=== PATIENT | female | born 1955 | race Caucasian/White ===

== ENCOUNTER 2016-09-20 06:32 | Day surgery (SDC) | payer OTHER ==
[2016-09-20] VITALS (8 sets, daily range): BP systolic 125–200; BP diastolic 63–126; PULSE 64–88; RESP 18–20; TEMP 97.4–98.3; O2SAT 94–98
[~2016-09-20] VITALS: Ht 162.6 cm; Wt 140.0 kg
[2016-09-20] MEDS ORDERED: LEVOFLOXACIN 500 MG PREMIX 100 ML - nephrostomy tube insertion or exchange IV SCH (07:15)
[2016-09-20] MEDS ORDERED: SODIUM CHLORIDE 0.9% 1000 ML IV SCH (07:15)
[2016-09-20] MEDS ORDERED: CALC1TAB87 PO (07:22)
[2016-09-20] MEDS ORDERED: MONT10TA4 PO (07:22)
[2016-09-20] MEDS ORDERED: METF850T PO (07:22)
[2016-09-20] MEDS ORDERED: GLYB5TAB3 PO (07:22)
[2016-09-20] MEDS ORDERED: FLUO40CA PO (07:22)
[2016-09-20] MEDS ORDERED: LISI-519 PO (07:22)
[2016-09-20 07:34] LABS: AUTOMATED NEUTROPHIL # 7.2 TH/MM3 (1.8-7.7); BASOPHIL # 0.1 TH/MM3 (0-0.2); BASOPHIL % 0.8 % (0.0-2.0); EOSINOPHIL # 0.3 TH/MM3 (0-0.4); EOSINOPHIL % 2.4 % (0.0-4.0); HEMATOCRIT 34.2 % (35.0-46.0); HEMO FLAGS DIFF FINAL; LYMPH % 24.5 % (9.0-44.0); LYMPHOCYTE # 2.6 TH/MM3 (1.0-4.8); MEAN CELL VOLUME 92.2 FL (80.0-100.0); MEAN CORPUSCULAR HEMOGLOBIN 32.5 PG (27.0-34.0); MEAN CORPUSCULAR HGB CONC 35.3 % (32.0-36.0); MONO % 5.4 % (0.0-8.0); NEUT % 66.9 % (16.0-70.0); PLATELET COUNT 308 TH/MM3 (150-450); RED BLOOD COUNT 3.71 MIL/MM3 (4.00-5.30); RED CELL DISTRIBUTION WIDTH 13.2 % (11.6-17.2); WHITE BLOOD COUNT 10.7 TH/MM3 (4.0-11.0)
[2016-09-20 07:36] LABS: APTT (PATIENT) 26.1 SEC (24.3-30.1); INTERNATIONAL NORMALIZED RATIO 0.9 RATIO; PROTHROMBIN TIME - PATIENT 10.1 SEC (9.8-11.6)
[2016-09-20] MEDS ORDERED: MIDAZOLAM HCL 5 MG/5 ML VIAL ONE (08:45)
[2016-09-20] MEDS ORDERED: fentaNYL CITRATE 250 MCG/5 ML AMP ONE (08:45)
[2016-09-20] MEDS ORDERED: MIDAZOLAM HCL 2 MG/2 ML VIAL ONE (09:44)
--- NOTE | 2016-09-20 10:14 | PD.RAD ---
Post Procedure Progress Note Pre Procedure Diagnosis: (1) Hydronephrosis of left kidney Post Procedure Diagnosis: (1) Hydronephrosis of left kidney Procedure Date: Sep 20, 2016 Supervising Radiologist: Emerson Guzman Anesthesia: Local, Conscious Sedation Plan of Activity Patient to Unit: ROPU Patient Condition: Good See PACS Report for procedural detail/treatment Drainage Procedure Procedure 1 Imaging Guidance: Fluoroscopy Side: Left Procedure Type: Nephrostomy Procedure: Placement Spanish: 8 Drainage: [place] drainage Fluid Description: Bloody Emerson Guzman MD Sep 20, 2016 10:14
[2016-09-20] MEDS ORDERED: GADODIAMIDE PF 287 MG/ML 20 ML VIAL (for RAD MRI) IV PUSH ONE (10:16)
--- NOTE | 2016-09-20 16:14 | RADRPT ---
EXAM DATE/TIME: 09/20/2016 09:01 [facility] COMPARISON: No previous studies available for comparison. INDICATIONS : Patient with history of left renal hydronephrosis and calculi in need of nephrostomy tube placement. MEDICAL HISTORY : 1.L2 lumbar fracture 2.DM 3.Chronic low back pain 4.Kidney stones SURGICAL HISTORY : 1.Lithotripsy 2.Tonsilectomy ENCOUNTER: Initial ACUITY: 1 week PAIN SCORE: 4/10 LOCATION: Back. FLUORO TIME: 12.1 minutes IMAGE SERIES: 2 SEDATION TIME: 60 minutes CONTRAST: 20 cc Omniscan (gadodiamide) MEDICATION(S): 1.) 7 mg midazolam (Versed) IV 2.) 350 mcg fentanyl (Sublimaze) IV DEVICE(S): 1.) 8 [place] nephrostomy catheter PROCEDURE : 1. Ultrasound-guided puncture of the kidney. 2. CO2 Antegrade percutaneous pyelogram. 3. Percutaneous nephrostomy placement. 4. Conscious sedation with continuous EKG and oximetry monitoring. The risks, benefits and alternatives to the procedure were explained and verbal and written consent w as obtained. The site was prepped in sterile fashion. Full sterile technique was used, including ca p, mask, sterile gloves and gown and a large sterile sheet. Hand hygiene and 2% chlorhexidine and/or betadine/alcohol prep was utilized per protocol for cutaneous antisepsis. The skin and subcutaneous tissues were infiltrated with local anesthetic solution. With ultrasound and fluoroscopic guidance the selected kidney was punctured and a percutaneous antegr davion pyelogram with CO2 was performed demonstrating a dilated collecting system. Serial dilatation wa s performed and a prescribed nephrostomy tube was placed within the renal pelvis and sutured in place . Conscious sedation was performed with the prescribed dosages and duration as above in the presence of an independent trained radiology nurse to assist in the monitoring of the patient. EKG and oximetry remained stable throughout the procedure. The patient tolerated the procedure well and there were n o complications. The patient was sent to post anesthesia recovery in stable condition. CONCLUSION: CO2 antegrade pyelogram demonstrates marked hydronephrosis. Uncomplicated nephrostomy tube placement as above. Emerson Guzman MD on September 20, 2016 at 16:11 Board Certified Radiologist. This report was verified electronically.
== END 2016-09-20 12:20 | disposition home or self-care (01) ==
LOC: HROP 06:32 → HRIP 06:42 → HROP 12:20
PROVIDERS: ATTEND Urology
DX: N13.2 Hydronephrosis with renal and ureteral calculous obstruction (principal); M54.5 Low back pain; G89.29 Other chronic pain; I10 Essential (primary) hypertension; E11.9 Type 2 diabetes mellitus without complications
CPT/HCPCS: 50432; 85025; 85610; 85730; 99152; 99153; A9579; C1729; C1769; C1887; C1894; J1956; J2250; J3010; J7030